=== PATIENT | female | born 1970 | race Caucasian/White ===

== ENCOUNTER 2016-10-03 11:55 | Emergency (ER) | payer SELFPAY ==
[~2016-10-03] VITALS: Ht 170.2 cm; Wt 115.0 kg
[~2016-10-03 11:55] MED LIST: LISI-586
[2016-10-03 11:57] VITALS: BP 161/89; PULSE 79; RESP 18; TEMP 97.5
[2016-10-03] MEDS ORDERED: LISI20TA PO (12:21)
[2016-10-03 12:24] VITALS: BP 135/73; PULSE 82; RESP 18; O2SAT 97
[2016-10-03 13:12] LABS: BACTERIA, URINE RARE /hpf; BLOOD, URINE NEG (NEG); COMMENT (UR) CULT NOT INDICATED; CULTURE IF INDICATED CULT NOT INDICATED; GLUCOSE,URINE NEG (NEG); KETONE, URINE NEG (NEG); NITRITE,URINE NEG (NEG); SQUAMOUS EPITHELIAL CELL URINE 6 /hpf (0-5); URINE COLOR LIGHT-YELLOW (YELLW/STRAW)
--- NOTE | 2016-10-03 13:31 | PD ---
HPI Chief Complaint: Complaint Time Seen by Provider: 12:27 Travel History International Travel<30 days: No Contact w/Intl Traveler<30days: No Traveled to known affect area: No History of Present Illness HPI 46-year-old female came to the emergency room with multiple unrelated complaints but mostly concerned about a possible UTI. Patient says that she was diagnosed with UTI about a week ago at her doctor's office and was started on ciprofloxacin. She finished her course of Cipro last night. However she still continues to feel some cramping in the lower abdominal area, lower back pain and some leg pains. Vital signs were stable. Patient has history of diabetes but is mostly diet controlled. She said she missed her period last month. She has had unprotected sex. Denies any vaginal discharge otherwise that is out of ordinary. [facility] Past Medical History Narrative Medical List of her past medical, surgical, social and family history was reviewed from the nursing note. Cardiovascular Problems: Yes (HTN) Diabetes: Yes Patient Takes Glucophage: No Hypertension: Yes ?: Not Social History Alcohol Use: No Tobacco Use: No Substance Use: No Allergies-Medications (Allergen,Severity, Reaction): Coded Allergies: Sulfa (Verified Allergy, Mild, 10/03/16) Comments List of her allergies reviewed from the nursing note. Reported Meds & Prescriptions Reported Meds & Active Scripts Active Reported Lisinopril-Hctz 20-12.5 Mg Tab 1 Tab PO DAILY Narrative Medication List of her home medications reviewed from the nursing note. Review of Systems Except as stated in HPI: all other systems reviewed are Neg Physical Exam Narrative GENERAL: Awake, alert, obese, anxious SKIN: Focused skin assessment warm/dry. HEAD: Atraumatic. Normocephalic. EYES: Pupils equal and round. No scleral icterus. No injection or drainage. ENT: No nasal bleeding or discharge. Mucous membranes pink and moist. NECK: Trachea midline. No JVD. CARDIOVASCULAR: Regular rate and rhythm. No murmur appreciated. RESPIRATORY: No accessory muscle use. Clear to auscultation. Breath sounds equal bilaterally. GASTROINTESTINAL: Abdomen soft, non-tender, nondistended. Hepatic and splenic margins not palpable. MUSCULOSKELETAL: No obvious deformities. No clubbing. No cyanosis. No edema. NEUROLOGICAL: Awake and alert. No obvious cranial nerve deficits. Motor grossly within normal limits. Normal speech. PSYCHIATRIC: Appropriate mood and affect; insight and judgment normal. Data Data Last Documented VS Vital Signs Date Time Temp Pulse Resp B/P Pulse Ox O2 Delivery O2 Flow Rate FiO2 10/03/16 15:19 74 18 168/77 99 Room Air 10/03/16 11:57 97.5 Orders Urinalysis - C+S If Indicated (10/03/16 12:35) Ed Urine Pregnancytest Poc (10/03/16 12:35) Blood Glucose (10/03/16 12:35) Ct Abd/Pel W/O Iv Contrast (10/03/16 ) Labs Laboratory Tests Test 10/03/16 12:40 Urine Color LIGHT-YELLOW Urine Turbidity HAZY Urine pH 6.0 Urine Specific [place] 1.005 Urine Protein NEG mg/dL Urine Glucose (UA) NEG mg/dL Urine Ketones NEG mg/dL Urine Occult Blood NEG Urine Nitrite NEG Urine Bilirubin NEG Urine Urobilinogen LESS THAN 2.0 MG/DL Urine Leukocyte Esterase LARGE Urine RBC 10 /hpf Urine WBC 7 /hpf Urine Squamous Epithelial 6 /hpf Cells Urine Bacteria RARE /hpf Microscopic Urinalysis Comment CULT NOT INDICATED MDM Medical Decision Making Medical Screen Exam Complete: Yes Emergency Medical Condition: Yes Medical Record Reviewed: Yes Differential Diagnosis UTI, hyperglycemia, Narrative Course 1:29 PM patient was not as per the urine . UA had 10 RBC. Given her symptoms there is a possibility of ureteral colic. Blood sugar was 140. At this point I decided to do a CT scan to rule out ureteral calculi. If CT is negative I will discharge her home and have her follow-up with her primary care doctor. 4:[address] scan does not show any acute pathology or any ureteral calculi. I' ll discharge her home. Procedures EKG Prior to Arrival: No Diagnosis Primary Impression: Lumbar radiculopathy Additional Impression: Lumbar scoliosis Qualified Code: M41.26 - Other idiopathic scoliosis, lumbar region Referrals: Primary Care Physician Additional Instructions: Please return to the ER if the condition worsens or any other new concerns. Otherwise follow-up with your primary care in couple days. Please ask your primary care to order a glucose tolerance test as an outpatient. You can take [id number] Tylenol/Motrin/Advil/Aleve/ibuprofen for your backache as needed. Med/Other Pt SpecificInfo: No Change to Meds Disposition: 01 DISCHARGE HOME Condition: Stable Akash,Shravanti R. MD Oct 03, 2016 13:31
[2016-10-03 15:19] VITALS: BP 168/77; PULSE 74; RESP 18; O2SAT 99
--- NOTE | 2016-10-03 16:15 | RADRPT ---
EXAM DATE/TIME: 10/03/2016 15:02 [facility] COMPARISON: No previous studies available for comparison. INDICATIONS : Diffuse abdomen pain with hematuria. ORAL CONTRAST: No oral contrast ingested. RADIATION DOSE: 16.98 CTDIvol (mGy) MEDICAL HISTORY : Hypertension. Diabetes mellitus type 2. Cardiovascular disease SURGICAL HISTORY : None. ENCOUNTER: Subsequent ACUITY: 1 month PAIN SCALE: 8/10 LOCATION: Left flank pain. TECHNIQUE: Volumetric scanning of the abdomen and pelvis was performed. Using automated exposure control and ad justment of the mA and/or kV according to patient size, radiation dose was kept as low as reasonably achievable to obtain optimal diagnostic quality images. FINDINGS: LOWER LUNGS: The visualized lower lungs are clear. LIVER: Homogeneous density without lesion. There is no dilation of the biliary tree. No calcified gallston es. SPLEEN: Normal size without lesion. PANCREAS: Within normal limits. KIDNEYS: Normal in size and shape. There is no mass, stone, or hydronephrosis. ADRENAL GLANDS: Within normal limits. VASCULAR: There is no aortic aneurysm. BOWEL/MESENTERY: Uncomplicated colonic diverticulosis is noted. No acute diverticulitis is noted. The appendix is norm al. ABDOMINAL WALL: Within normal limits. RETROPERITONEUM: There is no lymphadenopathy. BLADDER: No wall thickening or mass. REPRODUCTIVE: Within normal limits. INGUINAL: There is no lymphadenopathy or hernia. MUSCULOSKELETAL: Degenerative changes and scoliosis of the lumbar spine are noted. CONCLUSION: 1. Uncomplicated colonic diverticulosis. 2. No acute obstructive uropathy. 3. Degenerative changes and scoliosis of the lumbar spine. Logan Gurrola MD on October 03, 2016 at 16:09 Board Certified Radiologist. This report was verified electronically.
== END 2016-10-03 16:37 | disposition home or self-care (01) ==
LOC: NEPD 11:55
DX: M54.16 Radiculopathy, lumbar region (principal); M41.26 Other idiopathic scoliosis, lumbar region
CPT/HCPCS: 74176; 81001; 84703; 99284